=== PATIENT | female | born 1985 | race Caucasian/White ===

== ENCOUNTER → 2019-04-03 | Outpatient (CLI) | payer OTHER ==
[2019-04-03 09:31] LABS: URINE WBC 31-50 /hpf (0-3)
== END ==
LOC: LAB 08:42
PROVIDERS: Nurse Practitioner Family
DX: N30.00 Acute cystitis without hematuria (principal)

== ENCOUNTER → 2019-11-30 | Outpatient (CLI) | payer OTHER | LOC: LAB 16:47 | DX: Z32.00 Encounter for pregnancy test, result unknown (principal) ==

== ENCOUNTER → 2021-07-04 | Outpatient (CLI) | payer OTHER | LOC: LAB 14:03 | DX: U07.1 COVID-19 (principal) ==